=== PATIENT | female | born 1990 | race African-American/Black ===

== ENCOUNTER 2021-01-03 06:00 | Outpatient (CLI) | payer OTHER ==
[~2021-01-03] VITALS: Ht 170.2 cm; Wt 65.0 kg
[2021-01-03] VITALS (22 sets, daily range): BP systolic 133–172; BP diastolic 69–104; PULSE 110–125
[2021-01-03] MEDS ORDERED: COLACE 100100 MG/CAP PO (06:25)
[2021-01-03] MEDS ORDERED: FERROUS SU325 MG/TAB PO (06:26)
[2021-01-03] MEDS ORDERED: ALDACTONE 25MG25 M1 PO (06:29)
[2021-01-03] MEDS ORDERED: ZESTRIL 20MG TA20 MG PO (06:30)
[2021-01-03] MEDS ORDERED: LANTUS100 U/ML SQ (06:31)
[2021-01-03] MEDS ORDERED: NOVOLOG FLEX100 U/ML SQ (06:34)
[2021-01-03 07:26] LABS: BASO % 0.3 % (0.0-2.0); EOS # 0.2 (0.0-0.7); EOS % 2.7 % (0-4.0); GRAN % 64.8 % (42.2-75.2); LYMPH # 1.5 (1.2-3.4); LYMPH % 24.5 % (20.0-51.0); MEAN CELL VOLUME 75 fl (80.0-100.0); MEAN CORPUSCULAR HGB CONC 31 g/dl (33.0-37.0); MONO # 0.5 (0.1-0.6); MONO % 7.5 % (1.7-9.3); PLATELET COUNT 412 K/mm3 (130-400); RED BLOOD COUNT 4.22 M/mm3 (4.10-5.30); REDCELL DISTRIBUTION WIDTH-CV 20.8 % (11.5-14.5)
[2021-01-03 07:29] LABS: HEMATOCRIT 31.5 % (37.0-47.0); HEMOGLOBIN 9.6 g/dl (12.5-16.0); MEAN CORPUSCULAR HEMOGLOBIN 23 pg (27.0-31.0)
--- NOTE | 2021-01-03 07:35 | NUR ---
HYDRALAZINE GIVEN ORDERED FOR B/P AT 174/112, HR 119. B/P AT 0745 169/107, B/R AT 0755 AT 167/99
--- NOTE | 2021-01-03 08:05 | NUR ---
ORDER FOR REPEAT HYDRALZINE, 10MG IV GIVEN AT 0800, B/P AT BEGINNING 167/99, THEN AT 0806 142/90,
[2021-01-03 08:11] LABS: PROTHROMBIN TIME 11.5 SECONDS (9.7-12.8)
--- NOTE | 2021-01-03 08:15 | NUR ---
PT C/O OF NAUSEA, STATES FEELS HER BLOOD SUGAR IS TOO LOW, PT DID OWN GLUCOSE 92, ACCUCHECK BY NURSE AT 108, DR RENDON CALLED, PT MAY HAVE JUICE TO TAKE, TOOK 4 OZ OF OJ, FEW BITES OF APPLESAUCE, STATES DOES FEEL BETTER. CT HERE PT TO SCANNER AT 0835 VIA W/C
--- NOTE | 2021-01-03 08:50 | NUR ---
PT IN CT. PLACED ON TABLE. BOTH DR MORRIS AND DR HAMILTON IN ROOM
--- NOTE | 2021-01-03 09:20 | NUR ---
ENOUGH SAMPLES WERE FOUND FOR THE LAB TO WORK WITH PER DR MORRIS. PT TAKEN TO [facility] 14 AND REPORT GIVEN
--- NOTE | 2021-01-03 09:20 | NUR ---
pt recieved back from CT scanner via w/c. rests in bed, instructed on bedrest for next 6 hours, call light in reach. no c/o. ordered breakfast. bandaid to lower back clean and dry
--- NOTE | 2021-01-03 10:30 | NUR ---
PT ATE BREAKFAST, NO C/O. VOIDED YELLOW URINE, NO BLOOD NOTED.
--- NOTE | 2021-01-03 13:00 | NUR ---
PT ATE LUNCH, USES PHONE, NO C/O OR REQUESTS, BANDAID TO BACK IS CLEAN AND DRY, NO SWELLING NOTED
--- NOTE | 2021-01-03 15:30 | NUR ---
PT UP IN ROOM, STATES NO NEED TO VOID AT THIS TIME. DR RENDON CALLED ON UPDATE, BANDAID TO BACK REMAINS CLEAN AND DRY, REVIEWED DISCHARGE INST. WITH PT ON ACTIVITY TODAY, CARE OF SITE, PRECAUTIONS AND FOLLOWUP WITH DR LICONA ON BIOPSY RESULTS WITH VERBAL UNDERSTANDNG. IV D'CD INTACT
--- NOTE | 2021-01-03 16:10 | NUR ---
PT DISCHARGED VIA W/C TO CAR WITH STAFF
== END 2021-01-03 16:10 | disposition home or self-care (01) ==
LOC: COL.RAD 06:00
PROVIDERS: Internal Medicine Nephrology
DX: R80.9 Proteinuria, unspecified (principal)
CPT/HCPCS: J0360; J2250; J3010